=== PATIENT | male | born 1960 | race Hispanic/Latino ===

== ENCOUNTER → 2017-06-20 | Outpatient (CLI) | payer OTHER | END | disposition home or self-care (01) | LOC: OIH 12:52 | PROVIDERS: ATTEND Internal Medicine Cardiovascular Disease | DX: Z13.6 Encounter for screening for cardiovascular disorders (principal) | CPT/HCPCS: 75571 ==

== ENCOUNTER → 2017-09-07 | Outpatient (CLI) | payer OTHER ==
[~2017-09-07] MED LIST: REGADENOSON 0.4 MG/5 ML PF SYG IVP SCH
== END | disposition home or self-care (01) ==
LOC: SHCH 08:04
PROVIDERS: ATTEND Internal Medicine Cardiovascular Disease
DX: R07.9 Chest pain, unspecified (principal)
CPT/HCPCS: 78452; 93017; 96374; A9500 ×2; J2785

== ENCOUNTER → 2018-02-21 | Outpatient (CLI) | payer MEDICAID | END | disposition home or self-care (01) | LOC: OIH 13:27 | PROVIDERS: ATTEND Family Medicine | DX: M54.2 Cervicalgia (principal); M25.512 Pain in left shoulder; M25.511 Pain in right shoulder; G89.4 Chronic pain syndrome | CPT/HCPCS: 72040; 73030 ==

== ENCOUNTER → 2020-05-19 | Outpatient (CLI) | payer MEDICAID ==
[~2020-05-19] VITALS: Ht 165.1 cm; Wt 77.6 kg
== END | disposition home or self-care (01) ==
LOC: SHCH 09:00
PROVIDERS: ATTEND Internal Medicine Cardiovascular Disease
DX: I25.10 Atherosclerotic heart disease of native coronary artery without angina pectoris (principal)
CPT/HCPCS: 78452; 93017; 96374; A9500 ×2; J2785

== ENCOUNTER 2020-09-24 08:19 | Day surgery (SDC) | payer MEDICAID ==
[2020-09-16 10:59] LABS: BASOPHILS % (AUTO) 0.5 % (0.0-5.0); EOSINOPHILS % (AUTO) 2.1 % (0.0-8.0); HEMATOCRIT 48.5 % (42-54); LYMPHOCYTES % (AUTO) 21.1 % (21.0-51.0); MEAN CORPUSCULAR HEMOGLOBIN 28.2 pg (27.0-33.0); MEAN CORPUSCULAR HGB CONC 32.2 g/dL (32.0-36.0); MEAN CORPUSCULAR VOLUME 87.7 fL (79-99); MONOCYTES % (AUTO) 9.5 % (3.0-13.0); NEUTROPHILS % (AUTO) 66.4 % (40.0-77.0); PLATELET COUNT (AUTO) 400 K/uL (130-400); RED BLOOD CELL COUNT(AUTO) 5.53 MIL/uL (4.50-6.20); RED CELL DISTRIBUTION WIDTH 14.6 % (11.0-15.5); WHITE BLOOD COUNT (AUTO) 12.1 K/uL (4.8-10.8)
[2020-09-16 11:08] LABS: CREATININE 0.9 mg/dL (0.5-1.5)
[~2020-09-24] VITALS: Ht 162.6 cm; Wt 81.1 kg
[2020-09-24] VITALS (16 sets, daily range): BP systolic 103–136; BP diastolic 59–82
[~2020-09-24 08:19] MED LIST changes: +CLON1TAB23 PO; +CYCL30DR OP; +ENAL20TA18 PO; +GLIP10TA9 PO; +HYDR200T4 PO; +LACTATED RINGERS 1000ML 1,000 ML IV SCH; +METF-446 PO; +PANT40TA55 PO; +PREG100C PO; -REGADENOSON 0.4 MG/5 ML PF SYG IVP SCH; +SERT100T PO; +SIMV40TA59 PO; +TYL4 PO; +VERA120T13 PO; +ZOLP10TA2 PO
[2020-09-24] MEDS ORDERED: NACL 0.9% 1000ML 1,000 ML IV ONE (09:17)
[2020-09-24] MEDS ORDERED: ALBUTEROL IH (09:46)
[2020-09-24] MEDS ORDERED: ALBUTEROL INHALER 90MCG/INH IH ONE (09:48)
[2020-09-24] MEDS ORDERED: ROPIVACAINE 0.5% 5MG/ML 30ML IJ ONE (09:52)
[2020-09-24] MEDS ORDERED: SUCCINYLCHOLINE CHLORIDE 20 MG/ML 10 ML VIAL ONE (09:54)
[2020-09-24] MEDS ORDERED: LIDOCAINE PF 100MG/5ML (2%) SYRINGE 5ML ONE (09:54)
[2020-09-24] MEDS ORDERED: ROCURONIUM 10MG/1ML SYR 10 MG/ML ML ONE (09:54)
[2020-09-24] MEDS ORDERED: PROPOFOL 10 MG/ML 20ML VIAL IV ONE (09:54)
[2020-09-24] MEDS ORDERED: MIDAZOLAM HCL 1 MG/ML 2ML VIAL ONE (10:00)
[2020-09-24] MEDS: CEFAZOLIN SODIUM 1 GM VIAL IVP SCH ×2 (10:01→10:34)
[2020-09-24] MEDS ORDERED: PHENYLEPHRINE HCL 10 MG/ML 1ML VIAL IV ONE (10:27)
[2020-09-24] MEDS ORDERED: ONDANSETRON 4MG INJ ONE (11:00)
[2020-09-24] MEDS ORDERED: GLYCOPYRROLATE 1 MG/5 ML SYRINGE ONE (11:00)
[2020-09-24] MEDS ORDERED: NEOSTIGMINE 5MG/5ML SYR IV ONE (11:00)
== END 2020-09-24 13:25 | disposition home or self-care (01) ==
LOC: DAH 08:19
PROVIDERS: ATTEND Orthopaedic Surgery
DX: M75.122 Complete rotator cuff tear or rupture of left shoulder, not specified as traumatic (principal); Z20.822 Contact with and (suspected) exposure to COVID-19; M67.814 Other specified disorders of tendon, left shoulder; G56.22 Lesion of ulnar nerve, left upper limb; I10 Essential (primary) hypertension; E11.9 Type 2 diabetes mellitus without complications; J45.909 Unspecified asthma, uncomplicated; K21.9 Gastro-esophageal reflux disease without esophagitis; E78.5 Hyperlipidemia, unspecified; E66.3 Overweight; Z68.29 Body mass index [BMI] 29.0-29.9, adult; Z87.891 Personal history of nicotine dependence; Z79.899 Other long term (current) drug therapy; Z98.890 Other specified postprocedural states
CPT/HCPCS: 23412; 23430; 36415; 64415; 76942; 80048; 82948 ×2; 85025; 87635; A4215; A4216; A4221; A4222; A4223 ×2; A4600; A4606; A4649; A4663; A4930 ×2; A6207; C1713 ×3; C9803; J0330; J0690; J2001; J2250; J2370; J2405; J2704; J2710; J2795; J3490; J7030 ×2; J7120

== ENCOUNTER 2020-09-25 02:01 | Emergency (ER) | payer MEDICAID ==
[~2020-09-25] VITALS: Ht 165.1 cm; Wt 77.1 kg
[~2020-09-25 02:01] MED LIST changes: +ALBUTEROL IH; -LACTATED RINGERS 1000ML 1,000 ML IV SCH
[2020-09-25 02:09] VITALS: BP 143/77
[2020-09-25] MEDS ORDERED: DiphenhydrAMINE HCL 50 MG/ML VIAL ONE (03:12)
== END 2020-09-25 02:45 | disposition left against medical advice (07) ==
LOC: EDH 02:01
DX: R21 Rash and other nonspecific skin eruption (principal); Z53.21 Procedure and treatment not carried out due to patient leaving prior to being seen by health care provider
CPT/HCPCS: J1200

== ENCOUNTER → 2021-04-19 | Outpatient (CLI) | payer MEDICAID ==
[~2021-04-19] MED LIST changes: -VERA120T13 PO; +VERA120T92 PO
== END | disposition home or self-care (01) ==
LOC: RAH 04-12 08:39
PROVIDERS: ATTEND Internal Medicine Gastroenterology
DX: M17.0 Bilateral primary osteoarthritis of knee (principal); R12 Heartburn
CPT/HCPCS: 73562; 74240